=== PATIENT | female | born 1955 | race Two or more races ===

== ENCOUNTER → 2017-08-29 | Outpatient (CLI) | payer MEDICARE, OTHER | END | disposition home or self-care (01) | LOC: RADPV 08:48 | PROVIDERS: ATTEND Family Medicine | DX: R13.10 Dysphagia, unspecified (principal) | CPT/HCPCS: 74230; 92611 ==

== ENCOUNTER 2021-03-29 17:38 | Emergency (ER) | payer MEDICARE, OTHER ==
[~2021-03-29] VITALS: Ht 154.9 cm; Wt 104.5 kg
[2021-03-29] MEDS ORDERED: KETOROLAC TROMETHAMINE 30 MG/ML VIAL IVP ONE (21:30)
[2021-03-29] MEDS ORDERED: MORPHINE SULFATE 10 MG/ML VIAL IVP ONE (21:30)
[2021-03-29 22:20] VITALS: BP 144/71
== END 2021-03-29 22:22 | disposition home or self-care (01) ==
LOC: EMS 17:38
DX: M25.552 Pain in left hip (principal); I25.10 Atherosclerotic heart disease of native coronary artery without angina pectoris; I10 Essential (primary) hypertension
CPT/HCPCS: 73503; 96374; 96375; 99284; J1885; J2270